=== PATIENT | female | born 1985 | race Caucasian/White ===

== ENCOUNTER 2021-09-01 15:00 | Outpatient (CLI) | payer OTHER, SELFPAY ==
--- NOTE | ~2021-09-01 | MR_ITS ---
EXAMINATION: MR cervical spine wo con DATE: 09/01/2021 15:55 INDICATION: Other chronic pain. Chronic pain at the junction of the neck and base of the skull. TECHNIQUE: Magnetic resonance imaging (MRI) of the cervical spine was performed without intravenous c ontrast. Sequences included sagittal T2-weighted FSE, sagittal T2-weighted FS FSE, sagittal T1-weight ed FSE, axial MERGE, and axial T2-weighted FSE. COMPARISON: Brain MRI 03/11/2017 FINDINGS: Bone alignment is normal. Vertebral body heights and intervertebral disc heights are normal . There are changes of suboccipital craniotomy. There is dilatation of the obex. The spinal cord sign al intensity is normal. The following disc levels are specifically discussed: C2-C3: The disc does not extend beyond the endplate margin. There is no uncovertebral joint osteoarth ritis. There is no facet joint osteoarthritis. There is no neural foraminal stenosis. There is no jeri tral canal stenosis. C3-C4: The disc does not extend beyond the endplate margin. There is no uncovertebral joint osteoarth ritis. There is no facet joint osteoarthritis. There is no neural foraminal stenosis. There is no jeri tral canal stenosis. C4-C5: There is a central protrusion. There is no uncovertebral joint osteoarthritis. There is no fac et joint osteoarthritis. There is no neural foraminal stenosis. There is mild central canal stenosis with ventral indentation of the spinal cord. C5-C6: There is a central protrusion. There is mild left uncovertebral joint osteoarthritis. There is no facet joint osteoarthritis. There is no neural foraminal stenosis. There is mild central canal st enosis. C6-C7: There is a central protrusion. There is mild left uncovertebral joint osteoarthritis. There is mild left facet joint osteoarthritis. There is no neural foraminal stenosis. There is mild central c anal stenosis. C7-T1: The disc does not extend beyond the endplate margin. There is no uncovertebral joint osteoarth ritis. There is mild bilateral facet joint osteoarthritis. There is no neural foraminal stenosis. The re is no central canal stenosis. IMPRESSION: 1. Dilatation of the obex, new from 03/11/2017. 2. Mild cervical spondylosis. Reviewed, dictated and finalized at location B. RANCE COORDINATOR
== END 2021-09-01 15:01 | disposition home or self-care (01) ==
LOC: ANHIMG 15:11
PROVIDERS: PCP Internal Medicine
DX: M47.892 Other spondylosis, cervical region (principal)
CPT/HCPCS: 72141

== ENCOUNTER → 2021-10-10 01:12 | Outpatient (CLI) | payer OTHER, SELFPAY ==
[2021-10-10 14:22] LABS: Influenza Control Positive
[2021-10-10 20:43] LABS: SARS-CoV-2 RNA PCR Positive
== END ==
PROVIDERS: PCP Internal Medicine; Visit Provider Nurse Practitioner
DX: U07.1 COVID-19 (principal); R68.89 Other general symptoms and signs
CPT/HCPCS: 87804; C9803; U0003; U0005

== ENCOUNTER 2023-03-25 09:29 | Outpatient (CLI) | payer OTHER, SELFPAY ==
--- NOTE | ~2023-03-25 | MR_ITS ---
EXAMINATION: MR thoracic spine wo con DATE: 03/25/2023 10:12 INDICATION: Thoracic radiculopathy. TECHNIQUE: Magnetic resonance imaging (MRI) of the thoracic spine was performed without intravenous c ontrast. COMPARISON: None FINDINGS: There is 6 degrees levocurvature of upper thoracic spine. Vertebral body heights and interv ertebral disc heights are normal. The discs do not extend beyond the endplate margins. There is multi level mild facet joint osteoarthritis. On the left, there is mild neural foraminal stenosis at T1-T2 and T9-T10. No central canal stenosis. The spinal cord signal intensity is normal. IMPRESSION: 1. Mild thoracic spondylosis. Reviewed, dictated and finalized at location A.
== END 2023-03-25 09:30 | disposition home or self-care (01) ==
PROVIDERS: PCP Family Medicine
DX: M50.30 Other cervical disc degeneration, unspecified cervical region (principal); M47.894 Other spondylosis, thoracic region
CPT/HCPCS: 72146

== ENCOUNTER 2023-09-14 17:17 | Outpatient (CLI) | payer OTHER, SELFPAY ==
--- NOTE | ~2023-09-14 | XR_ITS ---
EXAM: XR abdomen/kub 1V DATE: 09/14/2023 17:35 HISTORY: Unspecified abdominal pain xray needed by insurance for CT . COMPARISON: None available. FINDINGS: Clear lung bases. Normal bowel gas pattern. No organomegaly. Multiple pelvic phleboliths. Regional bones and soft tissues normal for age. IMPRESSION: Unremarkable abdominal radiograph findings. Reviewed, dictated and finalized at location K. E UNION OFFICIAL
== END 2023-09-14 17:18 | disposition home or self-care (01) ==
PROVIDERS: PCP Nurse Practitioner; Visit Provider Nurse Practitioner Family
DX: R10.9 Unspecified abdominal pain (principal)
CPT/HCPCS: 74018

== ENCOUNTER 2025-09-11 23:03 | Emergency (ER) | payer OTHER, SELFPAY ==
[2025-09-11 23:04] VITALS: BP 153/72; PULSE 74; RESP 16; TEMP 36.3; O2SAT 98
--- NOTE | 2025-09-12 01:39 | ED.EYEPROB ---
HPI - Eye Problem General Chief complaint: Eye Problems Stated complaint: eye infection Time Seen by Provider: 09/12/25 01:38 Source: patient Mode of arrival: ambulatory Limitations: no limitations History of Present Illness HPI Narrative: Patient is a 40-year-old female presents to the emergency department complaining of left eye irritation, increased tear production, slight redness to her left eye. Patient denies any obvious crusting. Patient admits some slight nasal congestion runny nose. Patient has a no fevers. Patient denies being contact lens wear. Patient denies any injuries to her eye. Patient denies any history is in past. Patient denies seeing an network engineer or egg factory worker. Patient denies wearing glasses. Denies anyone having similar symptoms to her. Related Data Home Medications ?Medication ?Instructions ?Recorded ?Confirmed ?Last Taken ?Type cetirizine 10 mg tablet (Zyrtec) 10 mg PO DAILY PRN 11/05/20 09/07/23 Unknown History Held on 02/16/24. Instructions: No longer our patient norethindrone (contraceptive) 0.35 0.35 mg PO DAILY 05/30/21 09/07/23 Unknown History mg tablet Held on 01/13/24. Instructions: .Provider Order Allergies Allergy/AdvReac Type Severity Reaction Status Date / Time No Known Allergies Allergy Mild Verified 09/07/23 13:26 Review of Systems Review of Systems: A 10 system review of systems was completed on the patient and is negative except for what is stated in the HPI. Nursing and ancillary documentation was reviewed. [facility] Past Medical History Medical History Chiari I malformation Chiari malformation Chronic headaches History of CVA (cerebrovascular accident) History of gestational diabetes History of hydrocephalus History of meningitis Stroke Surgical History Surgical History History of brain surgery Family History Family History Mother Hypertension Hypothyroidism Father Hypertension Social History Social History Years smoked: 4 Smoking status: Current some day smoker Tobacco type: cigarettes Second hand tobacco smoke exposure: Yes Additional smoking assessment comments: States that she smokes 4 cigarettes daily. Alcohol intake: never Substance use: current Substance use type: marijuana Lack of Transportation: No Lack of Food: Never True Current Housing: I Have Housing Concerned About Future Housing: No Difficulty Paying Gas/Electric Bills: YES Difficulty Paying for Meds: No Currently Unemployed: No Education: Associate Degree Difficulty w/ Childcare or Family Care: No Living arrangements: with family Exam Narrative: CONST: No acute distress. Well nourished. HENMT: Head is normocephalic and atraumatic. Moist mucous membranes. No posterior oropharynx erythema. EYES: No scleral icterus. No conjunctival injection or pallor. No subconjunctival hemorrhage bilaterally. No hypopyon or hyphema. Extraocular motions are intact. No discharge coming from either eye. Increased tear production of the left eye. Fluorescein uptake present over the left cornea, approximately 1 x 2 mm overlying the pupil, no Puneet sign. No foreign bodies appreciated on lid eversion. Pupils are 2-3 mm and equal round reactive to light bilaterally. Visual acuity 20/70 Left eye and 20/40 right eye. NECK: No meningeal signs. RESP: Able to speak in full sentences. Normal respiratory effort. CTAB. CARDIO: Regular rate. Regular rhythm. 2+ DP and radial pulses bilaterally. GI: Nondistended. No tenderness to palpation. Soft. : No CVA tenderness to palpation. SKIN: No rashes or lesions noted on exposed skin. NEURO: Oriented x3. Moves all extremities. EXTREM/MSK/BACK: No pedal edema. PSYCH: Normal affect. Course Vital Signs Vital signs: Vital Signs Temperature 97.4 F L 09/11/25 23:04 Pulse Rate 74 09/11/25 23:04 Respiratory Rate 16 09/11/25 23:04 Blood Pressure 153/72 H 09/11/25 23:04 Pulse Oximetry 98 09/11/25 23:04 Oxygen Delivery Room Air 09/11/25 23:04 Temperature 98.4 F 09/12/25 02:16 Pulse Rate 78 09/12/25 02:16 Respiratory Rate 16 09/12/25 02:16 Blood Pressure 125/78 09/12/25 02:16 Pulse Oximetry 100 09/12/25 02:16 Oxygen Delivery Room Air 09/11/25 23:04 [facility] MDM Narrative Medical decision making narrative: Patient presents with the above complaint. Initial vitals are remarkable for no significant abnormalities. Physical examination as noted above. Plan discussed: Visual acuity, fluorescein staining. No signs or symptoms of glaucoma, pupils are 2-3 mm equal round reactive to light bilaterally, no conjunctival injection, extraocular motions intact, corneal abrasion present on exam orbital signs of globe rupture. Patient ordered antibiotic eyedrops follow up with Ophthalmology as needed in the next 2-3 days if still having persistent symptoms. Patient was reassessed at the bedside. No changes in physical exam. Patient is in no acute distress. The patient has remained stable throughout the entire ED visit. Counseled patient regarding diagnostic results and potential diagnosis. Anticipatory guidance provided. Patient instructed to follow up with [facility] in 2-3 days. Patient counseled on: false reassurance from an emergency department evaluation; no current evidence of a medical emergency; return immediately for any new, recurrent, worsening, concerning, or refractory symptoms. Patient prescribed ciprofloxacin eyedrops. Prescription sent to preferred pharmacy. Medications discussed with patient. Additional verbal and printed discharge instructions were given and discussed with the patient. Patient verbally acknowledges understanding of condition and discharge instructions. All questions were answered to the patient's satisfaction. Patient is in agreement with the plan of care. The patient is stable for discharge and was discharged without incident. Differential Diagnosis Differential Diagnosis: Corneal abrasion, conjunctivitis, blepharitis, dry eyes. Discharge Plan Discharge Clinical Impression: Abrasion, corneal Qualifiers: Encounter type: initial encounter Laterality: left Qualified Code(s): S05.02XA - Injury of conjunctiva and corneal abrasion without foreign body, left eye, initial encounter Patient Disposition: Home Condition: Stable Instructions: Antibiotic Form, Corneal Abrasion (ED) Additional Instructions: Take the antibiotic eyedrops as prescribed, follow-up with ophthalmology in the next 2-3 days if still having any persistent symptoms, return immediately to the emergency department for any new or concerning symptoms especially any emergent concerns for life, limb, eyesight. Patient Language: Uzbek Prescriptions: New ciprofloxacin HCl 0.3 % drops 2 drp LEFT EYE Q6H 5 Days Qty: 10 0RF Rx Instructions: administer while awake No Action norethindrone (contraceptive) 0.35 mg tablet 0.35 mg PO DAILY amlodipine 10 mg tablet 10 mg PO DAILY Qty: 30 5RF cetirizine [Zyrtec] 10 mg tablet 10 mg PO DAILY PRN hydrocodone-acetaminophen 7.5-325 mg tablet 1 tablet PO Q6H PRN (Reason: pain) Qty: 120 0RF dicyclomine 20 mg tablet 20 mg PO TID PRN (Reason: abdominal pain) Qty: 60 0RF cholecalciferol (vitamin D3) 1,250 mcg (50,000 unit) tablet 1,250 mcg PO WEEKLY Qty: 8 0RF Rx Instructions: Start 2000 IU daily after finishing this Rx omeprazole 40 mg capsule,delayed release(DR/EC) See Rx Instructions .ROUTE .COMPLEX Qty: 90 0RF Dose Instruction: TAKE 1 CAPSULE BY MOUTH DAILY Rx Instructions: TAKE 1 CAPSULE BY MOUTH DAILY ibuprofen 600 mg tablet 600 mg PO Q6H PRN (Reason: pain) Qty: 90 1RF Follow-up/Referrals: [facility] [Outside] - 2 Days UNKNOWN,DOCTOR [Non-Staff] Time of Disposition: 02:09
--- OUTSIDE RECORDS SUMMARY | 2025-09-12 01:49 | XMS_ITS | Clinical Summary ---
Author Organization [facility] Address [address] [place] [address] Care Team Providers Care Speech Pathology Teacher Name Role Phone Dung Powell MD Primary Care Provider [phone] Source Comments [facility],non-owned Affiliates and Associated Physician Practices is amultiple site organization consisting of ambulatory clinics and hospital sitesin [place], [place], [place] and [place]. This disclosure is being madepursuant to the Care Everywhere program and may not contain all information available regarding this patient. Last updated 18.[facility] Allergies No known active allergies Medications * Be aware that medications may not be up to date on this document. Alwaysverify current medications with the patient. levonorgestrel- ethinyl estradiol (Levlen; Nordette; Levora; Imelda;) 0.15-30 MG-MCG tablet Take 1 (one) tablet by mouth once daily Active HYDROcodone-dev taminophen (NORCO) 10-325 MG tablet Take 1 (one) tablet by mouth 4 times daily as needed for Headache 09/30/2017 Active ibuprofen (MOTRIN) 600 MG tablet Take 1 (one) tablet by mouth 3 times daily With food for neck pain 3 02/22/2018 Active Cetirizine HCl (ZYRTEC PO) Active norethindrone (Aygestin) 5 MG tablet Take 0.35 mg by mouth once daily Active amLODIPine (Norvasc) 10 MG tablet Take 1 (one) tablet by mouth once daily 11/16/2023 Active methocarbamol (Robaxin) 500 MG tablet TAKE 1 TABLET BY MOUTH ONCE DAILY NEEDED FOR MUSCLE SPASM 11/23/2023 Active Active Problems Patient Care Coordination No te Formatting of this note migh t be different from the original. [facility] [id number] [place] [id number] Fax: Problem Noted Date Diagnosed Date Cervicogenic headache 10/26/2017 Intractable migraine with aura without status mi grainosus 10/26/2017 Occipital neuralgia of left side 10/26/2017 Other complicated headache syndrome 10/26/2017 Cerebellar infarction 05/09/2017 Chronic daily headache 05/09/2017 Medication overuse headache 05/09/2017 Recurrent occipital headache 05/09/2017 Supervision of high-risk of mimi crandall igravida 07/07/2016 Chiari malformation type I 07/07/2016 Frequent headaches 07/07/2016 Narcotic drug use 07/07/2016 Gestational diabetes mellitus (GDM) in third tri mester 07/07/2016 Hx of preeclampsia, prior , currently p regnant 05/25/2016 Spina bifida with hydrocephalus 04/29/2014 Disorder of meninges 04/29/2014 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 Family History Medical History Relation Name Comments Hypertension Father Hypertension Maternal Grandmother Hypertension Mother Lung Cancer Paternal Grandfather Relation Name Status Comments Brother Alive Father Alive Maternal Grandfather Maternal Grandmother Mother Alive Paternal Grandfather Paternal Grandmother Sister Alive Social History Tobacco Use Types Packs/Day Years Used Date Smoking Tobacco: Some Days Cigarettes 0 Last attempted to quit: 10/11/2006 Smokeless Tobacco: Never Tobacco Cessation:Ready to Q uit: Not Asked; Counseling Given: Not Answered Alcohol Use Standard Drinks/Week Comments No 0 (1 standard drink = 0.6 oz pur e alcohol) Comments No Sex and Gender Information Value Date Recorded Sex Assigned at Not on file Legal Sex Female 8:39 AM CDT Gender Identity Not on file Sexual Orientation Not on file Last Filed Vital Signs Vital Sign Reading Time Taken Comments Blood Pressure 137/88 12/16/2023 8:41 AM ASSEMBLER BODY Pulse 100 12/16/2023 8:41 AM ASSEMBLER BODY Temperature 36.5 C (97.7 F) 12/16/2023 8:41 AM ASSEMBLER BODY Respiratory Rate 18 12/31/2022 9:16 AM CDT Oxygen Saturation 99% 12/16/2023 8:41 AM ASSEMBLER BODY Inhaled Oxygen Concentration - - Weight 55.3 kg (122 lb) 12/16/2023 8:41 AM ASSEMBLER BODY Height 160 cm (5' 3) 12/16/2023 8:41 AM ASSEMBLER BODY Body Mass Index 21.61 12/16/2023 8:41 AM ASSEMBLER BODY Plan of Treatment Health Maintenance Due Date Last Done Comments HIV SCREENING 2002 HEPATITIS C SCREENING 02/04/2005 DTAP/TDAP/TD VACCINES (1 - Tdap) 2006 HEPATITIS B VACCINE (1 of 3 - 19+ 3-dose series) 2006 PNEUMOCOCCAL VACCINE (1 of 2 - PCV) 2006 Cervical Cancer Screening 02/10/2008 PAP SMEAR 02/10/2008 HPV VACCINE (1 - 3-dose SCDM series) 2014 PAP with HPV 2017 DEPRESSION SCREENING 10/11/2024 COVID-19 VACCINE (1 - 2024-2 6 season) 2025 INFLUENZA VACCINE (#1) 2025 ZOSTER VACCINE (1 of 2) 2037 HIB VACCINE Aged Out No longer eligi ble based on patient's age to complete this topic MENINGOCOCCAL (Group B) VACC INE SHARED DECISION-MAKING Aged Out No longer eligibl e based on patient's age to complete this topic MENINGOCOCCAL GROUPS A/C/Y/W VACCINE Aged Out No longer eligible b ased on patient's age to complete this topic Insurance [facility] Care Teams Speech Pathology Teacher Relationship Specialty Start Date End Date Dung Powell MD [address] [place] [id number] PCP - General Family Medicine 05/25/16
--- OUTSIDE RECORDS SUMMARY | 2025-09-12 01:49 | XMS_ITS | Encounter Summary ---
Author Organization [facility] Address [address] [place] [address] Phone Care Team Providers Care Design Coordinator Name Role Phone Denis Sethi DO Primary Care Provider [phone] Encounter Details Date Type Department Care Team (Late st Contact Info) Description 09/17/2017 Orders Only [facility] ProviderTrudy MD [address] [place] [id number] Social History Tobacco Use Types Packs/Day Years Used Date Smoking Tobacco: Never Assessed Comments Unknown Sex and Gender Information Value Date Recorded Sex Assigned at Not on file Legal Sex Female 4:09 PM YIELD CLERK Gender Identity Not on file Sexual Orientation Not on file documented as of this encounter Plan of Treatment Not on file documented as of this encounter Procedures Procedure Name Priority Date/Time Associated Diagnosis Comments DISCHARGE LABORATORY CUMULATIVE REPORT 09/17/2017 12:00 AM YIELD CLERK CYTOLOGY 09/17/2017 12:00 AM YIELD CLERK documented in this encounter Results * CYTOLOGY (09/17/2017 12:00 AM YIELD CLERK) Narrative 09/17/2017 12:00 AM YIELD CLERK Ordered by an unspecified provider. Historical Provider LAB CYTOLOGY ORDERABLES F inal Result * DISCHARGE LABORATORY CUMULATIVE REPORT (09/17/2017 12:00 AM YIELD CLERK) Narrative 09/17/2017 12:00 AM YIELD CLERK Ordered by an unspecified provider. us Historical Provider LAB BLOOD ORDERABLES Maria Antonia l Result documented in this encounter Visit Diagnoses Not on filedocumented in this encounter Care Teams Design Coordinator Relationship Specialty Start Date End Date Denis Sethi DO PCP - General Internal Medicine 01/23/21 documented as of this encounter
--- OUTSIDE RECORDS SUMMARY | 2025-09-12 01:49 | XMS_ITS | Clinical Summary ---
Author Organization [facility] Address [address] [place] [address] Care Team Providers Care Fish Inspector Name Role Phone Gordon Key MD Primary Care Provider [phone] Allergies No known active allergies Medications promethazine (PHENERGAN) 25 MG tablet Take 1 tablet (25 mg total) by mouth every 6 (six) hours as needed for Nausea. 20 tablet 09/04/2023 Active tiZANidine (ZANAFLEX) 4 MG tablet Take 1 tablet (4 mg total) by mouth every 6 (six) hours as needed. 12 tablet 09/04/2023 Active Social History Tobacco Use Types Packs/Day Years Used Date Smoking Tobacco: Some Days Cigarettes Smokeless Tobacco: Never Tobacco Cessation:Ready to Q uit: Not Asked; Counseling Given: Not Answered Comments Unknown Sex and Gender Information Value Date Recorded Sex Assigned at Not on file Legal Sex Female 6:40 PM CDT Gender Identity Not on file Sexual Orientation Not on file Last Filed Vital Signs Vital Sign Reading Time Taken Comments Blood Pressure 142/98 09/04/2023 11:24 AM READING PROFESSOR Pulse 67 09/04/2023 11:24 AM READING PROFESSOR Temperature 36.3 C (97.3 F) 09/04/2023 8:14 AM READING PROFESSOR Respiratory Rate 16 09/04/2023 11:24 AM READING PROFESSOR Oxygen Saturation 100% 09/04/2023 11:24 AM READING PROFESSOR Inhaled Oxygen Concentration - - Weight 54.4 kg (120 lb) 09/04/2023 8:14 AM READING PROFESSOR Height 160 cm (5' 3) 09/04/2023 8:14 AM READING PROFESSOR Body Mass Index 21.26 09/04/2023 8:14 AM READING PROFESSOR Plan of Treatment Health Maintenance Due Date Last Done Comments Cervical Cancer Screening Pa p Smear (Age 30 to 64) Every 3 Years 1987 Annual Physical 1990 Hepatitis C 2005 DTaP, Tdap and Td Vaccines ( 1 - Tdap) 2006 Pneumococcal Vaccine: Pediatrics (0 to 5 Years) and At-Risk Patients (6 to 49 Years) (1 of 2 - PCV) 2006 HPV Vaccines (1 - 3-dose SCD M series) 2014 Cervical Cancer Screening Pa p with HPV Testing (Age 30 to 64) Every 5 Years 2017 Cervical Cancer Screening wi th HPV 2017 COVID-19 Vaccine ( - 2024-2 6 season) 2025 Influenza Adult (#1) 2025 Hepatitis B Vaccines Completed 03/01/1997, 11/09/1996, 09/21/1996 Hepatitis A Vaccines Aged Out No long er eligible based on patient's age to complete this topic Meningococcal B Vaccine Aged Out No l onger eligible based on patient's age to complete this topic Meningococcal Vaccine Aged Out No solange susanne eligible based on patient's age to complete this topic RSV Immunizations Under 20 Months Aged Out No longer eligible b ased on patient's age to complete this topic Insurance [employer] Care Teams Fish Inspector Relationship Specialty Start Date End Date Gordon Key MD [address] [place] [address] PCP - General FAMILY PRACTICE 09/04/23
--- OUTSIDE RECORDS SUMMARY | 2025-09-12 01:49 | XMS_ITS | Encounter Summary ---
Author Organization [facility] Address [address] [place] [address] Care Team Providers Care Roadside Mechanic Name Role Phone Dung Powell MD Primary Care Provider [phone] Encounter Details Date Type Department Care Team (Late st Contact Info) Description 09/14/2023 Telephone [facility] - Centralized Scheduling [address] [place] [address] Etienne Richardson MD [address] [facility] [place] [address] Social History Tobacco Use Types Packs/Day Years Used Date Smoking Tobacco: Some Days Cigarettes 0 Last attempted to quit: 10/11/2006 Smokeless Tobacco: Never Alcohol Use Standard Drinks/Week Comments No 0 (1 standard drink = 0.6 oz pur e alcohol) Comments No Sex and Gender Information Value Date Recorded Sex Assigned at Not on file Legal Sex Female 8:39 AM CDT Gender Identity Not on file Sexual Orientation Not on file documented as of this encounter Miscellaneous Notes * Telephone Encounter - Sarah Segura - 09/14/2023 4:36 PM CST Pt is calling to schedule an appt. She has a referral to [facility] for G93.0 (ICD-10-CM) - Arachnoid cyst H53.9 (ICD-10-CM) - Visual disturbance I am unsure who to schedule her with. She has an MRI scheduled for October 11. She meets with a neurosurgeon on Oct 14. She would like to have this evaluated before that appt. Please advise ER LAW ASSOCIATE documented in this encounter Plan of Treatment Not on file documented as of this encounter Visit Diagnoses Not on filedocumented in this encounter Care Teams Roadside Mechanic Relationship Specialty Start Date End Date Dung Powell MD [address] [place] [id number] PCP - General Family Medicine 05/25/16 documented as of this encounter
[2025-09-12] MEDS: ACETAMINOPHEN 500 MG TABLET 1000 MG PO (02:11)
[2025-09-12] MEDS: CIPROFLOXACIN HCL 0.3% OP SOLN 2.5 ML BTL 2 DROP LEFT EYE (02:11)
[2025-09-12 02:16] VITALS: BP 125/78; PULSE 78; RESP 16; TEMP 36.9; O2SAT 100
== END 2025-09-12 02:18 | disposition home or self-care (01) ==
PROVIDERS: Emergency Provider Student in an Organized Health Care Education/Training Program
DX: S05.02XA Injury of conjunctiva and corneal abrasion without foreign body, left eye, initial encounter (principal); G91.9 Hydrocephalus, unspecified; G93.5 Compression of brain; Z86.73 Personal history of transient ischemic attack (TIA), and cerebral infarction without residual deficits; F17.210 Nicotine dependence, cigarettes, uncomplicated; X58.XXXA Exposure to other specified factors, initial encounter
CPT/HCPCS: 99283; A9270